=== PATIENT | male | born 1980 | race Caucasian/White ===

== ENCOUNTER 2023-02-15 20:46 | Emergency (ER) | payer BC ==
[~2023-02-15] VITALS: Ht 175.3 cm; Wt 142.9 kg
[2023-02-15 20:53] VITALS: BP 133/112
[2023-02-15 21:18] LABS: BASOPHILS ABSOLUTE AUTO 0.06 K/mm3 (0.00-0.23); BASOPHILS PERCENT AUTO 1 % (0-2); EOSINOPHILS ABSOLUTE AUTO 0.31 K/mm3 (0.00-0.68); EOSINOPHILS PERCENT AUTO 3 % (0-6); Hematocrit 42.3 % (37.0-53.0); IMMATURE GRAN ABSOLUTE AUTO 0.03 K/mm3 (0.00-0.10); IMMATURE GRAN PERCENT AUTO 0 % (0-1); LYMPHOCYTES ABSOLUTE AUTO 2.86 K/mm3 (0.84-5.20); LYMPHOCYTES PERCENT AUTO 26 % (21-46); MONOCYTES ABSOLUTE AUTO 0.66 K/mm3 (0.16-1.47); MONOCYTES PERCENT AUTO 6 % (4-13); Mean Corpuscular HGB 30.5 pg (26.0-34.0); Mean Corpuscular HGB Conc 35.5 g/dL (31.5-36.5); Mean Corpuscular Volume 86 fL (80-100); Mean Platelet Volume 10.6 fL (9.1-12.4); NEUTROPHILS ABSOLUTE AUTO 7.03 K/mm3 (1.96-9.15); NEUTROPHILS PERCENT AUTO 64 % (41-73); Platelet Count 228 K/mm3 (150-400); RDW Coefficient Variation 11.9 % (11.7-14.2); Red Blood Cell Count 4.92 M/mm3 (4.30-5.90); White Blood Cell Count 10.95 K/mm3 (4.00-11.30)
[2023-02-15 21:44] LABS: Albumin, Blood 3.5 g/dL (3.4-5.0); Bilirubin, Total 0.7 mg/dL (0.1-1.0); Creatinine, Blood 1.31 mg/dL (0.60-1.20); Globulin, Blood 3.6 g/dL (2.2-4.0); Potassium, Blood 3.8 mmol/L (3.5-5.5); Total Protein, Blood 7.1 g/dL (6.4-8.2)
== END 2023-02-16 01:22 | disposition home or self-care (01) ==
LOC: ER 20:46
PROVIDERS: Student in an Organized Health Care Education/Training Program
DX: K85.90 Acute pancreatitis without necrosis or infection, unspecified (principal); F41.9 Anxiety disorder, unspecified; G47.00 Insomnia, unspecified
CPT/HCPCS: 71046; 80053; 83690; 84484; 85025; 93005; 93010; 99285-25

== ENCOUNTER 2024-11-02 14:57 | Emergency (ER) | payer BC ==
[~2024-11-02] VITALS: Ht 175.3 cm; Wt 139.7 kg
[2024-11-02 15:05] VITALS: BP 161/100
== END 2024-11-02 18:15 | disposition home or self-care (01) ==
LOC: ER 14:57
DX: S61.210A Laceration without foreign body of right index finger without damage to nail, initial encounter (principal); W26.0XXA Contact with knife, initial encounter
CPT/HCPCS: 12001; 90471; 90715; 99282-25